=== PATIENT | male | born 1995 | race Caucasian/White ===

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

== ENCOUNTER → 2018-01-24 | Outpatient (CLI) | payer BC ==
--- NOTE | 2018-01-24 16:26 | RAD ---
Right great toe, 2 views, 01/24/2018: HISTORY: Injury, pain No fracture or dislocation is identified. The soft tissues are unremarkable. IMPRESSION: No acute bony abnormality is detected. Electronically signed by: Devaughn Quiros MD (01/24/2018 4:23 PM) [facility]
== END | disposition home or self-care (01) ==
LOC: RAD 16:08
PROVIDERS: ATTEND Physician Assistant
DX: M25.571 Pain in right ankle and joints of right foot (principal)
CPT/HCPCS: 73660

== ENCOUNTER 2018-02-22 19:21 | Emergency (ER) | payer OTHER, BC ==
[~2018-02-22] VITALS: Ht 188 cm; Wt 74.8 kg
[2018-02-22 21:00] VITALS: BP 98/64
[2018-02-22] MEDS ORDERED: CYCL-331 PO (21:06)
[2018-02-22] MEDS ORDERED: MELO7.5T5 PO (21:06)
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
== END 2018-02-22 21:25 | disposition home or self-care (01) ==
LOC: ER 19:21
DX: S29.012A Strain of muscle and tendon of back wall of thorax, initial encounter (principal); M54.2 Cervicalgia; R51 Headache; V43.52XA Car driver injured in collision with other type car in traffic accident, initial encounter; Y93.I9 Activity, other involving external motion; Y92.488 Other paved roadways as the place of occurrence of the external cause; Y99.8 Other external cause status
CPT/HCPCS: 70450; 72125; 72128; 72131; 99284

== ENCOUNTER → 2018-03-07 | Outpatient (CLI) | payer BC, OTHER ==
[2018-02-22 21:00] VITALS: BP 98/64
[~2018-03-07] MED LIST: CYCL-331 PO; MELO7.5T5 PO
--- NOTE | 2018-03-07 16:39 | RAD ---
Chest, 2 views, 03/07/2018: HISTORY: Cough The heart size is normal. No pulmonary infiltrate is seen. There is no evidence of pleural fluid. IMPRESSION: No acute cardiopulmonary abnormality is detected. Electronically signed by: Devaughn Quiros MD (03/07/2018 4:35 PM) [facility]
== END | disposition home or self-care (01) ==
LOC: PMG 14:25
PROVIDERS: ATTEND Physician Assistant
DX: R06.09 Other forms of dyspnea (principal)
CPT/HCPCS: 71046